=== PATIENT | male | born 1950 | race Caucasian/White ===

== ENCOUNTER → 2016-06-16 | Outpatient (CLI) | payer BC | END | disposition home or self-care (01) | LOC: GMAL 14:21 | PROVIDERS: ATTEND Family Medicine | DX: D53.9 Nutritional anemia, unspecified (principal); D51.3 Other dietary vitamin B12 deficiency anemia ==

== ENCOUNTER → 2016-07-25 | Outpatient (CLI) | payer BC | LOC: GMAL 10:56 | PROVIDERS: ATTEND Family Medicine | DX: D51.3 Other dietary vitamin B12 deficiency anemia (principal); D53.9 Nutritional anemia, unspecified ==

== ENCOUNTER → 2016-10-27 | Outpatient (CLI) | payer BC | END | disposition home or self-care (01) | LOC: GMAL 10:30 | PROVIDERS: ATTEND Family Medicine | DX: Z00.01 Encounter for general adult medical examination with abnormal findings (principal) ==

== ENCOUNTER → 2017-02-24 | Outpatient (CLI) | payer BC | END | disposition home or self-care (01) | LOC: GMAL 11:57 | PROVIDERS: ATTEND Family Medicine | DX: B17.10 Acute hepatitis C without hepatic coma (principal); Z12.5 Encounter for screening for malignant neoplasm of prostate; E55.9 Vitamin D deficiency, unspecified ==

== ENCOUNTER → 2017-08-06 | Outpatient (CLI) | payer MEDICARE, OTHER ==
--- NOTE | 2017-08-06 16:15 | MRI ---
EXAM DESCRIPTION: Brain w/o Contrast: MRI. CLINICAL HISTORY: pituitary adenoma COMPARISON: None. TECHNIQUE: Multiplanar, high-field MRI unit, multiple diffusion sequences, multiple conventional sequences without contrast. No authorization for gadolinium IV contrast, so pituitary protocol not performed. FINDINGS: Small bilateral regions of hyperintense FLAIR and T2-weighted signal in the periventricular white matter which are relatively symmetric. Few bilateral hyperintense foci in the justice-white matter junctions of the cerebral hemispheres. . Normal signal in the bilateral basal ganglia with bilateral perivascular spaces. No hemorrhage, no cerebral edema, no mass-effect. Normal signal in the brainstem and cerebellar hemispheres. No hemorrhage, no cerebral edema, no mass-effect. Concordance of the diffusion and non-diffusion sequences with no diffusion restriction. Cortical sulci, ventricles, and other CSF spaces, and the subdural spaces are physiologic for patient's age. No effacement or displacement. No midline shift. No extra-axial hemorrhage. Normal flow signal void in the major vessels of the [place], and the venous sinuses. IACs are symmetric bilaterally. Normal signal bilateral mastoid air cells. No mass effect in the bilateral cerebellopontine angles. Pituitary gland occupies most of the sella. Pituitary gland not enlarged. Base of the cerebellar tonsils is at the level of the foramen magnum. Diffuse bilateral mucoperiosteal thickening with bilateral cysts or polyps in the maxillary antra. The bony calvarium is intact. IMPRESSION: 1. Minimal hyperintense signal in the periventricular white matter and the subcortical white matter junctions with the justice matter. This appearance and distribution most likely cerebral microvascular disease. Less likely to represent demyelinating process, migraine headaches, inflammatory process, or vasculitis. 2. Normal noncontrast MRI diffusion study with no evidence of acute or subacute infarction. 3. Paranasal pansinusitis. Electronically signed by: Edwar Carter MD 08/06/2017 4:14 PM CDT
== END ==
LOC: MRI 07:17
PROVIDERS: ATTEND Family Medicine
DX: D35.2 Benign neoplasm of pituitary gland (principal); J32.9 Chronic sinusitis, unspecified

== ENCOUNTER → 2017-11-18 | Outpatient (CLI) | payer MEDICARE, OTHER | LOC: GMAL 14:43 | PROVIDERS: ATTEND Family Medicine | DX: D51.3 Other dietary vitamin B12 deficiency anemia (principal); R53.83 Other fatigue; E55.9 Vitamin D deficiency, unspecified ==

== ENCOUNTER → 2018-03-11 | Outpatient (CLI) | payer MEDICARE, OTHER | LOC: GMAL 11:26 | PROVIDERS: ATTEND Family Medicine | DX: Z12.5 Encounter for screening for malignant neoplasm of prostate (principal) ==

== ENCOUNTER → 2018-10-13 | Outpatient (CLI) | payer MEDICARE, OTHER | LOC: GMAL 11:51 | PROVIDERS: ATTEND Family Medicine | DX: M10.9 Gout, unspecified (principal); E10.9 Type 1 diabetes mellitus without complications; I10 Essential (primary) hypertension ==

== ENCOUNTER 2018-11-25 05:30 | Day surgery (SDC) | payer MEDICARE, OTHER ==
[2018-11-25] MEDS ORDERED: LIDOCAINE 1% 10 ML VIAL INJ ONE (07:00)
[2018-11-25] MEDS ORDERED: PROPOFOL 200 MG/20 ML VIAL IV ONE (07:00)
[2018-11-25] MEDS ORDERED: LACTATED RINGERS 1,000 ML ONE (07:07)
[2018-11-25] MEDS ORDERED: LACTATED RINGERS 1,000 ML IVS ONE (07:40)
[2018-11-25] MEDS ORDERED: MIDAZOLAM INJ 2 MG/2 ML VIAL ONE (07:51)
[2018-11-25 09:24] VITALS: BP 146/57; TEMP 97.3; O2SAT 97
--- NOTE | 2018-11-25 10:21 | OP ---
DATE OF PROCEDURE: 11/25/18 PROCEDURE: 1. Screening colonoscopy. SURGEON: Randall Liriano MD ANESTHESIA: General. PROCEDURE: In lateral position, general anesthesia was induced. Digital rectal exam was normal. The scope was inserted. With minimal difficulty and a good prep, it was taken all the way to the cecum. Upon withdrawal, there was one small polyp that was biopsied at about 20 cm and another large 1.8 cm polyp that was taken at its base with a hot snare. The edges looked clean. This was retrieved and sent for specimen. No other antibiotics were found. The first one was at 20 cm, the second one right at the rectosigmoid junction. He tolerated the procedure and was then taken to Recovery to be discharged. #[id number] MTDD
== END 2018-11-25 09:30 | disposition home or self-care (01) ==
LOC: AMB 05:30
PROVIDERS: ATTEND Surgery
DX: Z12.11 Encounter for screening for malignant neoplasm of colon (principal); K63.5 Polyp of colon; D12.7 Benign neoplasm of rectosigmoid junction; Z95.1 Presence of aortocoronary bypass graft; Z90.49 Acquired absence of other specified parts of digestive tract; Z79.82 Long term (current) use of aspirin; Z79.899 Other long term (current) drug therapy
CPT/HCPCS: 00812; 36416; 45380; 45385; 82948; 88305; J2250; J3490; J7120

== ENCOUNTER → 2019-04-06 | Outpatient (CLI) | payer MEDICARE, OTHER | LOC: GMAL 11:04 | PROVIDERS: ATTEND Family Medicine | DX: D51.3 Other dietary vitamin B12 deficiency anemia (principal); R53.83 Other fatigue; M10.9 Gout, unspecified; E55.9 Vitamin D deficiency, unspecified; I12.9 Hypertensive chronic kidney disease with stage 1 through stage 4 chronic kidney disease, or unspecified chronic kidney disease; N18.9 Chronic kidney disease, unspecified; E11.40 Type 2 diabetes mellitus with diabetic neuropathy, unspecified; E78.2 Mixed hyperlipidemia ==

== ENCOUNTER 2019-04-15 10:46 | Emergency (ER) | payer MEDICARE, OTHER ==
[2019-04-15] MEDS ORDERED: HYDROcodone 10MG/APAP 325MG 1 EA TAB PO ONE (11:00)
[2019-04-15] MEDS ORDERED: CYCLOBENZAPRINE HCL 10 MG TAB PO ONE (11:00)
--- NOTE | 2019-04-15 11:04 | ED.PDOC ---
History of Present Illness - General Chief Complaint: Back Pain or Injury Stated Complaint: low back pain Time Seen by Provider: 04/15/19 11:00 Source: patient Exam Limitations: no limitations - History of Present Illness Timing/Duration: days - 3 to 4 days Quality/Severity: moderate Back Pain Location: lumbar spine Back Pain Radiation: other - Patient reported pain in the right hip 2 days ago, this is resolved now Method of Injury/Prior Injury: unknown Improving Factors: nothing Worsening Factors: other - Bending/twisting Associated Symptoms: other - No numbness/tingling; no incontinence of bowel or bladder; no fevers; only back surgery history is a microdiscectomy, no hardware; no fever Allergies/Adverse Reactions: Allergies NO KNOWN ALLERGY Allergy (Verified 11/22/18 15:03) Home Medications: Ambulatory Orders Aspirin [(None)] 325 mg PO QD 11/22/18 Carvedilol [Coreg] 6.25 mg PO BID 11/22/18 Cholecalciferol [Vitamin D3] 1,000 unit PO DAILY 11/22/18 Cyanocobalamin [Vitamin B-12] 1,000 mcg PO DAILY 11/22/18 Febuxostat [Uloric] 40 mg PO DAILY 11/22/18 Furosemide [Lasix] 20 mg PO BID 11/22/18 Gabapentin [Neurontin] 100 mg PO TID 11/22/18 Human Insulin Aspart [Novolog] 0 unit SUBCU PRN PRN 11/22/18 Human Insulin Aspart [Novolog] 0 unit SUBCU PRN PRN MDD 160 11/22/18 Human Insulin Aspart [Novolog] 30 unit SC .BREAKFAST 11/22/18 Human Insulin Aspart [Novolog] 30 unit SC .LUNCH 11/22/18 Human Insulin Aspart [Novolog] 40 unit SC .DINNER 11/22/18 Insulin Detemir [Levemir] 45 unit SUBCU BID 11/22/18 Losartan Potassium [Cozaar] 50 mg PO BID 11/22/18 Pravastatin Sodium [Pravachol] 20 mg PO MOFR 11/22/18 metOLazone [Zaroxolyn] 5 mg PO MOWEFR 11/22/18 Cyclobenzaprine HCl [Flexeril] 10 mg PO Q8HR #20 tab 04/15/19 HYDROcodone 5MG/APAP 325MG [Edmond 5/325] 1 - 2 tablet PO Q6HRS #20 tab 04/15/19 Review of Systems - Review of Systems Constitutional: Denies: chills, fever, malaise, weakness Gastrointestinal/Abdominal: States: no symptoms reported Genitourinary: States: no symptoms reported. Denies: dysuria, frequency, hemat uria, pain Musculoskeletal: States: back pain. Denies: joint pain, joint swelling, muscle pain, muscle stiffness Neurological: Denies: numbness, paresthesia, weakness All other Systems: Reviewed and Negative Past Medical History (General) - Patient Medical History Hx Congestive Heart Failure: No Hx Diabetes: Yes Hx MRSA: No Family Medical History - Family History Mother Family History: Unknown Physical Exam - Physical Exam General Appearance: Alert, Well Developed, Well Groomed, Well Nourished Neck Exam: non-tender, normal alignment, normal inspection Cardiovascular/Respiratory: regular rate, rhythm, no M/R/G, normal peripheral pulses Gastrointestinal/Abdominal: normal bowel sounds, non tender Back Exam: other - Left lower lumbar paraspinal tenderness, no step-offs or deformities. No CVA tenderness. No significant muscle spasm. Extremity Exam: normal range of motion Neurologic: no motor/sensory deficits, alert, oriented x 3 Skin Exam: normal color, warm/dry Progress - Progress Progress: 04/15/19 11:58 Reviewed x-ray results. Strict warnings given to return the emergency room for worsening pain, fever, incontinence of bowel/bladder, inability to walk, or other concerns. Recommended follow-up with PCP in 3 to 5 days for recheck. - Results/Orders Results/Orders: 11:32 AM. Lumbar spine films reviewed by me. X-ray shows degenerative changes, no fracture. Atherosclerosis of the aorta Departure - Departure Clinical Impression: Low back pain Qualifiers: Chronicity: acute Back pain laterality: left Sciatica presence: without sciatica Qualified Code(s): M54.5 - Low back pain Disposition: Discharge to Home or Self Care Condition: Good Departure Forms: ED Discharge - Pt. Copy, Patient Portal Self Enrollment Instructions: DI for Low Back Pain Referrals: Nadeem Cardona III, MD [Primary Care Provider] - 1-2 Weeks Prescriptions: HYDROcodone 5MG/APAP 325MG [Edmond 5/325] 1 - 2 tablet PO Q6HRS #20 tab Cyclobenzaprine HCl [Flexeril] 10 mg PO Q8HR #20 tab Home Medications: Ambulatory Orders Aspirin [(None)] 325 mg PO QD 11/22/18 Carvedilol [Coreg] 6.25 mg PO BID 11/22/18 Cholecalciferol [Vitamin D3] 1,000 unit PO DAILY 11/22/18 Cyanocobalamin [Vitamin B-12] 1,000 mcg PO DAILY 11/22/18 Febuxostat [Uloric] 40 mg PO DAILY 11/22/18 Furosemide [Lasix] 20 mg PO BID 11/22/18 Gabapentin [Neurontin] 100 mg PO TID 11/22/18 Human Insulin Aspart [Novolog] 0 unit SUBCU PRN PRN 11/22/18 Human Insulin Aspart [Novolog] 0 unit SUBCU PRN PRN MDD 160 11/22/18 Human Insulin Aspart [Novolog] 30 unit SC .BREAKFAST 11/22/18 Human Insulin Aspart [Novolog] 30 unit SC .LUNCH 11/22/18 Human Insulin Aspart [Novolog] 40 unit SC .DINNER 11/22/18 Insulin Detemir [Levemir] 45 unit SUBCU BID 11/22/18 Losartan Potassium [Cozaar] 50 mg PO BID 11/22/18 Pravastatin Sodium [Pravachol] 20 mg PO MOFR 11/22/18 metOLazone [Zaroxolyn] 5 mg PO MOWEFR 11/22/18 Cyclobenzaprine HCl [Flexeril] 10 mg PO Q8HR #20 tab 04/15/19 HYDROcodone 5MG/APAP 325MG [Edmond 5/325] 1 - 2 tablet PO Q6HRS #20 tab 04/15/19
--- NOTE | 2019-04-15 11:33 | RAD ---
EXAM DESCRIPTION: Lumbar Spine 3 Views CLINICAL HISTORY: 68 years Male, back pain COMPARISON: None available. FINDINGS: Straightening of the normal lordotic curvature of the lumbar spine. The vertebral body heights are well-maintained with no acute compression deformity. Multilevel degenerative disc disease and facet arthropathy is noted throughout the lumbar spine, worse at L4-L5 and L5-S1 levels. No evidence of spondylolysis or spondylolisthesis. Atherosclerotic calcifications of the visualized aorta. IMPRESSION: Multilevel degenerative disc disease and facet arthropathy is noted throughout the lumbar spine, worse at L4-L5 and L5-S1 levels. Electronically signed by: Shauna Hernandez MD 04/15/2019 11:31 AM [facility]
[2019-04-15 12:11] VITALS: BP 123/65; TEMP 98.7; O2SAT 97
== END 2019-04-15 12:02 | disposition home or self-care (01) ==
LOC: ER 10:46
DX: M54.5 Low back pain (principal); M47.817 Spondylosis without myelopathy or radiculopathy, lumbosacral region; M51.37 Other intervertebral disc degeneration, lumbosacral region; E11.9 Type 2 diabetes mellitus without complications; Z98.890 Other specified postprocedural states; Z79.4 Long term (current) use of insulin; Z79.899 Other long term (current) drug therapy; Z79.82 Long term (current) use of aspirin

== ENCOUNTER → 2019-08-08 | Outpatient (CLI) | payer MEDICARE, OTHER | LOC: GMAL 11:30 | PROVIDERS: ATTEND Family Medicine | DX: M10.9 Gout, unspecified (principal); I12.9 Hypertensive chronic kidney disease with stage 1 through stage 4 chronic kidney disease, or unspecified chronic kidney disease; N18.9 Chronic kidney disease, unspecified; E10.9 Type 1 diabetes mellitus without complications; Z79.899 Other long term (current) drug therapy ==

== ENCOUNTER → 2019-11-15 | Outpatient (CLI) | payer MEDICARE, OTHER | LOC: GMAL 14:24 | PROVIDERS: ATTEND Family Medicine | DX: E53.8 Deficiency of other specified B group vitamins (principal); I50.22 Chronic systolic (congestive) heart failure; I12.9 Hypertensive chronic kidney disease with stage 1 through stage 4 chronic kidney disease, or unspecified chronic kidney disease; N18.9 Chronic kidney disease, unspecified; D63.1 Anemia in chronic kidney disease; E11.42 Type 2 diabetes mellitus with diabetic polyneuropathy; E55.9 Vitamin D deficiency, unspecified; Z13.29 Encounter for screening for other suspected endocrine disorder; E78.2 Mixed hyperlipidemia ==

== ENCOUNTER → 2019-12-02 | Outpatient (CLI) | payer MEDICARE, OTHER ==
--- NOTE | 2019-12-02 11:20 | US ---
EXAM DESCRIPTION: Carotid Duplex: ULTRASOUND. CLINICAL HISTORY: 69 years Male OCCLUSION AND STENOSIS CAROTID ARTERY COMPARISON: CTA neck previously canceled. TECHNIQUE: Transcutaneous scanning utilizing justice-scale and Doppler modes to evaluate the bilateral carotid systems and vertebral arteries. Percentage of diameter of stenosis or no stenosis recorded will be based upon NASCET criteria. FINDINGS: Peak systolic/end diastolic velocities (CM-Sec) CCA Right 77/18 Left 117/16. ICA Right proximal 64/18, distal 105/33. Left proximal 70/19, Distal 56/22. Vertebral Right 59/2 Left 70/16. ECA (PS Only) Right 100 left 132. ICA/CCA peak systolic velocity ratio: Right 1.4 Left 0.6 ICA/CCA end diastolic velocity ratio: Right 1.9 Left 1.2 Vertebral arteries: antegrade flow. Comments: Bilateral atherosclerotic calcifications. No spectral broadening in the ICAs. Area and diameter stenosis in the right carotid bulb and the proximal right ICA less than 40%. Area and diameter stenoses in the left CCA bulb is less than 60%. IMPRESSION: 1. Doppler evaluation of the bilateral carotid systems and vertebral arteries shows no hemodynamically significant stenoses (less than 70%). 2. Moderate amount of plaque in the carotid arteries bilaterally. Bilateral vertebral arteries showed antegrade-cephalad flow. Electronically signed by: Edwar Carter MD 12/02/2019 11:18 AM CDT
== END ==
LOC: US 09:00
PROVIDERS: ATTEND Family Medicine
DX: I65.23 Occlusion and stenosis of bilateral carotid arteries (principal)

== ENCOUNTER → 2020-04-16 | Outpatient (CLI) | payer MEDICARE, OTHER | LOC: GMAL 10:27 | PROVIDERS: ATTEND Family Medicine | DX: D51.3 Other dietary vitamin B12 deficiency anemia (principal); E55.9 Vitamin D deficiency, unspecified; Z12.5 Encounter for screening for malignant neoplasm of prostate; R53.83 Other fatigue; Z79.899 Other long term (current) drug therapy; E11.42 Type 2 diabetes mellitus with diabetic polyneuropathy; E78.2 Mixed hyperlipidemia | CPT/HCPCS: 82306; 82607; 84443; G0103 ==